=== PATIENT | male | born 1945 ===

== ENCOUNTER 2018-09-03 07:44 | Day surgery (SDC) | payer OTHER ==
[~2018-09-03 07:44] MED LIST: COLACE100 MG PO; LISINOPRIL2.5 MG PO; NORVASC2.5 M1 PO; ULTRACET PO
== END 2018-09-03 12:40 | disposition home or self-care (01) ==
LOC: AMB-ENDOS 07:44
DX: D12.8 Benign neoplasm of rectum (principal)

== ENCOUNTER 2021-11-01 05:31 | Day surgery (SDC) | payer OTHER | END 2021-11-01 13:39 | disposition home or self-care (01) | LOC: AMB-ENDOS 05:31 | PROVIDERS: ATTEND Surgery | DX: D12.2 Benign neoplasm of ascending colon (principal) ==